=== PATIENT | female | born 1960 | race Caucasian/White ===

== ENCOUNTER 2023-12-23 09:34 | Outpatient (AMB) | payer OTHER, SELFPAY ==
--- NOTE | 2023-12-23 09:44 | A.OFFPC_ITS ---
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 Intake Note: NPV Allergies doxycycline Allergy (Intermediate, Verified 12/23/23 09:45) Chest Pain Medication List - Last Reconciled 12/23/23 by Eden Aviles MD clobetasol 0.05% topical DAILY ketoconazole 2% appl topical BID levothyroxine 50 mcg PO DAILY loratadine 10 mg PO DAILY loratadine-pseudoephedrine 10-240 mg ER (Allergy Relief D-24hr) 1 tab PO DAILY pravastatin 10 mg PO BEDTIME Tobacco use date assessed: 12/23/23 Last assessed Fall Risk: 12/23/23 Dental Screening Dental Screen Date: 12/23/23 Did you have a dental visit in the last 12 months?: Yes Did you have a dental problem in the last 6 months where you did not have access to dental care?: No Was dental information given to patient?: Patient has dentist HPI HPI Comments History of Present Illness Details 63 year old female with a past medical h istory of hypothyroid, hype rlipidemia, allergies presenting for follow up Endocrine: Hypothyroid. Has been clinically and biochemically stable on current levothyroxine dose MSK: Goes to [employer] [facility]. Sees Dr Smith. Gets regular PT. Mammo: 04/2023 [facility], [facility] Social History (Updated 12/23/23 @ 09:48 by Stefany Traore [facility]) Housing: House Patient Tobacco Use Status: Former Tobacco user Cigarette Packs Per Day: 0.5 Years Smoked: 20 years e-Cigarette/Vaping Use: Never Used Second Hand Smoke Exposure: No service: No Current occupational status: retired Cognitive needs: No Hearing needs: Yes (Hearing aids) Vision needs: Yes (glasses) Questionnaire PHQ-9 Over the last 2 weeks, how often have you been bothered by any of the following problems? 1. Little interest or pleasure in doing things: not at all 2. Feeling down, depressed, or hopeless: not at all 3. Trouble falling or staying asleep, or sleeping too much: not at all 4. Feeling tired or having little energy: not at all 5. Poor appetite or overeating: not at all 6. Feeling bad about yourself - or that you are a failure or have let yourself or your family down: not at all 7. Trouble concentrating on things, such as reading the newspaper or watching television: not at all 8. Moving or speaking so slowly that other people could have noticed. Or the opposite - being so fidgety or restless that you have been moving around a lot more than usual: not at all 9. Thoughts that you would be better off or of hurting yourself in some way: not at all Total score: 0 Depression Screening Interpretation: Negative Depression Screening Done: Yes 67673 - PHQ-9 Billing: Yes Source: Developed by Drs. Hayden Phoenix, Jinny Mccollum, Audie Alegria and colleagues, with an educational moshe from [employer]. Thrive Questionnaire Date Thrive assessed: 12/23/23 I am a: Patient What is your living situation today?: I have a steady place to live Within the past 12 months, did the food you bought not last and you didn't have the money to get more?: Never true Within the past 12 months, did you worry whether your food would run out before you got money to buy more?: Never true Do you have trouble paying for medicines?: No Do you have trouble getting transportation to medical appointments?: No Do you have trouble paying your heating and electricity bill?: No Do you have trouble taking care of your child, family member or friend?: No Do you have trouble with day-to-day activities such as bathing, preparing meals, shopping, managing finances, etc.?: No Are you currently unemployed and looking for a job?: No Are you interested in more education?: No Please select the resources that you would like help with: None Currently or been in a relationship where the following occur: I choose not to answer this question THRIVE Score: 0 AUDIT C Alcohol Use Questionnaire (AUDIT-C) 1. How often do you have a drink containing alcohol?: 2-3 times a week 2. How many drinks containing alcohol do you have on a typical day when you are drinking?: 1 or 2 3. How often do you have six or more drinks on one occasion?: Never Total Score: 3 Score Reviewed/Action Taken: Yes AMARI-7 AMB Questionnaire AMARI-7 Date AMARI - 7 assessed: 12/23/23 Feeling nervous, anxious, or on edge: 0 = Not at all Not being able to stop or control worryin = Not at all Worrying too much about different things: 0 = Not at all Trouble relaxin = Not at all Being so restless that it is hard to sit still: 0 = Not at all Becoming easily annoyed or irritable: 0 = Not at all Feeling afraid as if something awful might happen: 0 = Not at all Total AMARI-7 score (0-4 normal; 5-9 mild; 10-14 moderate; 15-21 severe): 0 Source: Developed by Drs. Hayden Phoenix, Jinny Mccollum, Audie Alegria and colleagues, with an educational moshe from [employer]. AMARI-7 Assessment Billing AMARI-7 Assessment Tool: AMARI-7 Assessment 35962 Review of Systems Const Details: ROS CONSTITUTIONAL: Denies weight loss, fever and chills. HEENT: Denies changes in vision and hearing. RESPIRATORY: Denies SOB and cough. CV: Denies palpitations and CP GI: Denies abdominal pain, nausea, vomiting and diarrhea. : Denies dysuria and urinary frequency. MSK: Denies new myalgia and joint pain. SKIN: Denies rash and pruritus. NEUROLOGICAL: Denies headache PSYCHIATRIC: Denies recent changes in mood. Physical exam (Primary Care) Vital Signs: Last Vital Signs Temp 98.5 F 12/23/23 09:51 Pulse 85 12/23/23 09:51 Resp 14 12/23/23 09:51 BP 108/58 L 12/23/23 09:51 Pulse Ox 98 12/23/23 09:51 Oxygen Delivery Method Room Air 12/23/23 09:51 PHYSICAL EXAM: GENERAL: Alert and oriented x 3. NAD EYES: EOMI. Anicteric. HENT: Moist mucous membranes. No scleral icterus. No cervical lymphadenopathy. LUNGS: Clear to auscultation bilaterally. CARDIOVASCULAR: Regular rate and rhythm. No murmur. No JVD. ABDOMEN: Soft, non-tender +bs EXTREMITIES: No edema. Non-tender. SKIN: No rashes or lesions. Warm. NEUROLOGIC: No focal neurological deficits. CN II-XII grossly intact PSYCHIATRIC: Cooperative. Appropriate mood and affect BMI result Body Mass Index 20.7 Tobacco/Smoking Status: Tobacco use Status Tobacco use date assessed 12/23/23 12/23/23 09:54 Patient Tobacco Use Status Former Tobacco user 12/23/23 09:54 e-Cigarette/Vaping Use Never Used 12/23/23 09:54 PHQ-9: PHQ-9 Score PHQ-9: Total score 0 12/23/23 09:57 Depression Screening Interpretation: Negative Thrive Assessment: Date of Thrive Assessment Date Thrive assessed 12/23/23 12/23/23 09:57 Currently or been in a relationship where the following occur: I choose not to answer this question Assessment and Plan Assessment & Plan (1) Hypothyroid: Comment: clinically and biochemically euthyroid Code(s): E03.9 - Hypothyroidism, unspecified Qualifiers: Hypothyroidism type: unspecified Qualified Code(s): E03.9 - Hypothyroidism, unspecified (2) Hyperlipidemia: Comment: labs today. diet low is saturated fats Code(s): E78.5 - Hyperlipidemia, unspecified Qualifiers: Hyperlipidemia type: unspecified Qualified Code(s): E78.5 - Hyperlipidemia, unspecified Orders: Orders Comprehensive Met. Panel Today E03.9 - Hypothyroidism, unspecified, E78.5 - Hyperlipidemia, unspecified TSH reflex Free T4 Today E03.9 - Hypothyroidism, unspecified, E78.5 - Hyperlipidemia, unspecified Lipid Panel Today E03.9 - Hypothyroidism, unspecified, E78.5 - Hyperlipidemia, unspecified Complete Blood Count Auto Diff Today E03.9 - Hypothyroidism, unspecified, E78.5 - Hyperlipidemia, unspecified Medications: New loratadine-pseudoephedrine 10-240 mg ER (Allergy Relief D-24hr) 1 tab PO DAILY 90 days 90 tabs 3RF Coding Level of Care Code Est Pt Level 4 (15130) Complex EM visit Add On G2211 Diagnoses Hypothyroidism, unspecified type E03.9 Hypothyroidism type: unspecified Hyperlipidemia, unspecified hyperlipidemia type E78.5 Hyperlipidemia type: unspecified Additional Codes AMARI-7 Assessment Billing - AMARI-7 Assessment Tool: AMARI-7 Assessment 07318 ([id number])
[2023-12-23 09:51] VITALS: BP 108/58; PULSE 85; RESP 14; TEMP 36.9; O2SAT 98; BMI 20.7
== END 2023-12-23 10:31 | disposition home or self-care (01) ==
PROVIDERS: PCP Internal Medicine; Visit Provider Internal Medicine
DX: E03.9 Hypothyroidism, unspecified (principal); E78.5 Hyperlipidemia, unspecified
CPT/HCPCS: 99214; G2211

== ENCOUNTER 2023-12-23 10:37 | Outpatient (REF) | payer OTHER, SELFPAY ==
[2023-12-23 14:29] LABS: MANUAL DIFF FLAG NO
[2023-12-23 14:32] LABS: Basophils Absolute Auto 0.1 X10*3/uL (0.0-0.2); Basophils Percent Auto 1.7 % (0-2); Eosinophils Absolute Auto 0.6 X10*3/uL (0.0-0.4); Eosinophils Percent Auto 10.6 % (0-4); Hematocrit 41.2 % (37.0-47.0); Hemoglobin 13.7 g/dl (12.0-16.0); Imm Gran Abs Auto 0.02 X10*3/uL (0.00-0.03); Imm Gran Pct Auto 0.3 % (0.0-0.4); Lymphocytes Percent Auto 16.6 % (20-40); Mean Corpuscular HGB Conc 33.3 g/dl (31.0-35.0); Mean Corpuscular Hemoglobin 31.8 pg (27.0-33.0); Mean Corpuscular Volume 95.6 fL (80.0-98.0); Mean Platelet Volume 12.9 fL (9.4-12.3); Monocytes Absolute Auto 0.7 X10*3/uL (0.1-1.2); Monocytes Percent Auto 12.2 % (2-11); Neutrophils Absolute Auto 3.4 x10*3/uL (2.0-8.3); Neutrophils Percent Auto 58.6 % (45-73); Platelet Count 166 X10*3/uL (160-400); Red Blood Count 4.31 X10*6/uL (4.20-5.50); Red Cell Distribution Width 12.6 % (11.0-16.0); White Blood Count 5.7 X10*3/uL (4.8-10.8)
[2023-12-23 15:17] LABS: Alanine Aminotransferase 17 U/L (0-31); Albumin Level 4.3 g/dL (3.5-5.0); Alkaline Phosphatase 73 U/L (39-117); Anion Gap 10 (12-20); Aspartate Amino Transferase 20 U/L (5-31); Bilirubin Total 0.3 mg/dL (0.0-1.0); Blood Urea Nitrogen 23 mg/dL (9-16); Calcium 9.7 mg/dL (8.4-10.2); Carbon Dioxide 30 mmol/L (22-29); Chloride 105 mmol/L (96-108); Cholesterol 231 mg/dL (<200); Estimated Glomerular Filt Rate > 60; Glucose Random 76 mg/dL (60-115); HDL Cholesterol 72 mg/dL (>40); LDL Cholesterol Calculated 142 mg/dL (<100); Potassium 3.6 mmol/L (3.3-5.1); Sodium 141 mmol/L (135-145); TSH reflex Free T4 1.52 uIU/mL (0.32-4.0); Total Protein 6.9 g/dL (6.5-8.0); Triglycerides 86 mg/dL (<150)
== END 2023-12-23 10:38 | disposition home or self-care (01) ==
LOC: HO.WFDLDS 10:37
PROVIDERS: Visit Provider Internal Medicine
DX: E78.5 Hyperlipidemia, unspecified (principal); E03.9 Hypothyroidism, unspecified
CPT/HCPCS: 36415; 80053; 80061; 84443; 85025

== ENCOUNTER 2024-06-08 10:14 | Outpatient (REF) | payer OTHER, SELFPAY ==
--- NOTE | ~2024-06-08 | MM_ITS ---
EXAMINATION: MM SCREENING DIGITAL BREAST TOMOSYNTHESIS, BILATERAL CLINICAL INFORMATION: Screening. Asymptomatic. COMPARISON: Mammography: Comparison is made with available priors TECHNIQUE: Digital breast mammography with tomosynthesis is performed in both the craniocaudal and mediolateral oblique views along with computer-aided detection (CAD). FINDINGS: The breasts are extremely dense, which lowers the sensitivity of mammography (ACR BI-RADS breast composition Category d). There are no significant masses, abnormal calcifications, or other abnormalities. MM/MM tomosynthesis screening BI IMPRESSION: No mammographic evidence of malignancy. ASSESSMENT: BI-RADS BI-RADS 1 - Negative RECOMMENDATION: Routine annual mammography screening. 1 year F/U This examination should not preclude the clinical evaluation of a suspicious palpable abnormality. This patient's information was entered into a reminder system with a target due date for their next mammogram. Electronically signed by: Marisa Yancey DO 06/17/2024 02:18 PM [facility]
== END 2024-06-08 10:15 | disposition home or self-care (01) ==
LOC: HO.MAMMO 10:14
PROVIDERS: PCP Internal Medicine; Visit Provider Internal Medicine
DX: Z12.31 Encounter for screening mammogram for malignant neoplasm of breast (principal)
CPT/HCPCS: 77063; 77067

== ENCOUNTER → 2024-06-08 10:30 | Outpatient (BNV) | payer OTHER, SELFPAY | PROVIDERS: PCP Internal Medicine; Visit Provider Internal Medicine | DX: Z12.31 Encounter for screening mammogram for malignant neoplasm of breast (principal) | CPT/HCPCS: 77063; 77067 ==

== ENCOUNTER 2024-06-10 09:11 | Outpatient (REF) | payer OTHER, SELFPAY ==
[2024-06-10 11:37] LABS: Baso%MD 1.5 %; Eos%MD 11.7 %; Hematocrit 42.7 % (37.0-47.0); Hemoglobin 14.2 g/dl (12.0-16.0); IG%MD 0.2 %; Mean Corpuscular HGB Conc 33.3 g/dl (31.0-35.0); Mean Corpuscular Hemoglobin 31.6 pg (27.0-33.0); Mean Corpuscular Volume 94.9 fL (80.0-98.0); Mean Platelet Volume 12.5 fL (9.4-12.3); Neut%MD 53.6 %; Platelet Count 169 X10*3/uL (160-400); Red Cell Distribution Width 12.7 % (11.0-16.0); White Blood Count 4.6 X10*3/uL (4.8-10.8)
[2024-06-10 11:46] LABS: Estimated Average Glucose 114 mg/dL; Hemoglobin A1C 131.7581 umol/L; Hemoglobin A1c % 5.6 % (<6.0); Total Hemoglobin (HGBA1C) 3529.0466 umol/L
[2024-06-10 12:01] LABS: Creatinine Urine 142.97 mg/dL; Microalbum/Creatinine Ratio Ur 40.5 ug/mg cr (<30)
[2024-06-10 12:06] LABS: Alanine Aminotransferase 24 U/L (0-31); Albumin Level 4.4 g/dL (3.5-5.0); Alkaline Phosphatase 82 U/L (39-117); Anion Gap 16 (12-20); Aspartate Amino Transferase 27 U/L (5-31); Bilirubin Total 0.4 mg/dL (0.0-1.0); Blood Urea Nitrogen 13 mg/dL (9-16); Calcium 9.6 mg/dL (8.4-10.2); Carbon Dioxide 27 mmol/L (22-29); Chloride 103 mmol/L (96-108); Cholesterol 227 mg/dL (<200); Estimated Glomerular Filt Rate > 60; Glucose Random 88 mg/dL (60-115); HDL Cholesterol 71 mg/dL (>40); LDL Cholesterol Calculated 142 mg/dL (<100); Potassium 3.9 mmol/L (3.3-5.1); Sodium 142 mmol/L (135-145); Total Protein 7.1 g/dL (6.5-8.0); Triglycerides 70 mg/dL (<150)
[2024-06-10 12:09] LABS: TSH reflex Free T4 1.44 uIU/mL (0.32-4.0); Thyroid Stimulating Hormone 1.44 uIU/mL (0.32-4.0)
[2024-06-10 13:38] LABS: Atypical Lymph Absolute Manual 0.3 x10*3/uL; Atypical Lymphs Percent Manual 6 % (0-6); Band Neutrophils Percent 2 % (3-5); Basophils Abs Manual 0.1 X10*3/uL (0.0-0.2); Basophils Percent Manual 2 % (0-2); Eosinophils Absolute Manual 0.3 X10*3/uL (0.0-0.4); Eosinophils Percent Manual 6 % (0-4); Lymphocytes Absolute Manual 0.6 X10*3/uL (1.2-4.9); Lymphocytes Percent Manual 14 % (20-40); Macrocytosis 1+ (5-14) /OIF; Monocytes Absolute Manual 0.6 X10*3/uL (0.1-1.2); Monocytes Percent Manual 12 % (2-11); Neutrophils Absolute Manual 2.8 X10*3/uL (2.0-8.3); Neutrophils Percent Manual 58 % (45-73); RBC Morphology NORMAL
[2024-06-10 13:39] LABS: Large Platelet PRESENT; Microcytosis 1+ (5-14) /OIF; Platelet Estimate DECREASED (NORMAL); Platelet Morphology Comment NOTED; Schistocytes 1+ (0-2) /OIF
[2024-06-10 13:40] LABS: Howell Jolly Bodies PRESENT
== END 2024-06-10 09:12 | disposition home or self-care (01) ==
LOC: HO.WFDLDS 09:11
PROVIDERS: Visit Provider Internal Medicine
DX: R79.89 Other specified abnormal findings of blood chemistry (principal); E03.9 Hypothyroidism, unspecified; E78.5 Hyperlipidemia, unspecified; R73.09 Other abnormal glucose
CPT/HCPCS: 36415; 80053; 80061; 82043; 82570; 83036; 84443; 85007; 85027

== ENCOUNTER 2024-07-07 08:49 | Outpatient (AMB) | payer OTHER, SELFPAY ==
--- NOTE | 2024-07-07 08:56 | MHC.PC.OV ---
Intake Visit Reasons: 6 month F/U Intake Note: Six month follow up. Reciprocating Drill Operator Required: No Allergies doxycycline Allergy (Intermediate, Verified 07/07/24 08:57) Chest Pain Tobacco use date assessed: 12/23/23 Dental Screening Dental Screen Date: 12/23/23 HPI HPI Comments History of Present Illness Details 64 year old female with a past medical history of hypothyroid, hyperlipidemia, allergies presenting for follow up Endocrine: Hypothyroid. Has been clinically and biochemically stable on current levothyroxine dose MSK: Goes to [employer] [facility]. Sees Dr Smith. Gets regular PT. CV: Tolerates 1/2 statin daily. If takes full dose then gets joint pain, myalgias. Mammo: UTD Colon cancer screening UTD ROS CONSTITUTIONAL: Denies weight loss, fever and chills. HEENT: Denies changes in vision and hearing. RESPIRATORY: Denies SOB and cough. CV: Denies palpitations and CP GI: Denies abdominal pain, nausea, vomiting and diarrhea. : Denies dysuria and urinary frequency. MSK: Denies new myalgia and joint pain. SKIN: Denies rash and pruritus. NEUROLOGICAL: Denies headache PSYCHIATRIC: Denies recent changes in mood. PHYSICAL EXAM: GENERAL: Alert and oriented x 3. NAD EYES: EOMI. Anicteric. HENT: Moist mucous membranes. No scleral icterus. No cervical lymphadenopathy. LUNGS: Clear to auscultation bilaterally. CARDIOVASCULAR: Regular rate and rhythm. No murmur. No JVD. ABDOMEN: Soft, non-tender +bs EXTREMITIES: No edema. Non-tender. SKIN: No rashes or lesions. Warm. NEUROLOGIC: No focal neurological deficits. CN II-XII grossly intact PSYCHIATRIC: Cooperative. Appropriate mood and affect [facility] Medical History (Updated 07/09/24 @ 15:14 by Eden Aviles MD) H/O mammogram Surgical History (Updated 07/07/24 @ 09:04 by Jessi Burns CMA) H/O colonoscopy H/O: hysterectomy Family History (Updated 07/07/24 @ 09:06 by Jessi Burns CMA) Mother Stomach cancer Social History (Updated 07/07/24 @ 09:01 by Jessi Burns CMA) Housing: House Alcohol intake: current Patient Tobacco Use Status: Former Tobacco user Cigarette Packs Per Day: 0.5 Years Smoked: 20 years e-Cigarette/Vaping Use: Never Used Second Hand Smoke Exposure: No service: No Current occupational status: retired Cognitive needs: No Hearing needs: Yes (Hearing aids) Vision needs: Yes (glasses) Questionnaire PHQ-9 Over the last 2 weeks, how often have you been bothered by any of the following problems? 1. Little interest or pleasure in doing things: not at all 2. Feeling down, depressed, or hopeless: not at all 3. Trouble falling or staying asleep, or sleeping too much: not at all 4. Feeling tired or having little energy: not at all 5. Poor appetite or overeating: not at all 6. Feeling bad about yourself - or that you are a failure or have let yourself or your family down: not at all 7. Trouble concentrating on things, such as reading the newspaper or watching television: not at all 8. Moving or speaking so slowly that other people could have noticed. Or the opposite - being so fidgety or restless that you have been moving around a lot more than usual: not at all 9. Thoughts that you would be better off or of hurting yourself in some way: not at all Total score: 0 Source: Developed by Drs. Hayden Phoenix, Jinny Mccollum, Audie Alegria and colleagues, with an educational moshe from [employer]. Thrive Questionnaire Date Thrive assessed: 06/23/24 I am a: Patient What is your living situation today?: I have a steady place to live Within the past 12 months, did the food you bought not last and you didn't have the money to get more?: Never true Within the past 12 months, did you worry whether your food would run out before you got money to buy more?: Never true Do you have trouble paying for medicines?: No Do you have trouble getting transportation to medical appointments?: No Do you have trouble paying your heating and electricity bill?: No Do you have trouble taking care of your child, family member or friend?: No Do you have trouble with day-to-day activities such as bathing, preparing meals, shopping, managing finances, etc.?: No Are you currently unemployed and looking for a job?: No Are you interested in more education?: No Please select the resources that you would like help with: None Currently or been in a relationship where the following occur: No concerns reported THRIVE Score: 0 AMARI-7 AMB Questionnaire AMARI-7 Date AMARI - 7 assessed: 12/23/23 Source: Developed by Drs. Hayden Phoenix, Jinny Mccollum, Audie Alegria and colleagues, with an educational moshe from [employer]. Physical exam (Primary Care) Tobacco/Smoking Status: Tobacco use Status Tobacco use date assessed 12/23/23 07/07/24 09:06 Patient Tobacco Use Status Former Tobacco user 07/07/24 09:06 e-Cigarette/Vaping Use Never Used 07/07/24 09:06 PHQ-9: PHQ-9 Score PHQ-9: Total score 0 07/07/24 09:38 Thrive Assessment: Date of Thrive Assessment Date Thrive assessed 06/23/24 07/07/24 09:06 Currently or been in a relationship where the following occur: No concerns reported Coding Level of Care Code Est Pt Level 4 (56202) Diagnoses Hypothyroidism, unspecified type E03.9 Hypothyroidism type: unspecified Hyperlipidemia, unspecified hyperlipidemia type E78.5 Hyperlipidemia type: unspecified Abnormal CBC R79.89 Assessment & Plan Assessment & Plan (1) Hypothyroid: Comment: clinically and biochemically euthyroid Code(s): E03.9 - Hypothyroidism, unspecified Category: Medical Qualifiers: Hypothyroidism type: unspecified Qualified Code(s): E03.9 - Hypothyroidism, unspecified Plan: continue current levothyroxine dose (2) Hyperlipidemia: Code(s): E78.5 - Hyperlipidemia, unspecified Category: Medical Qualifiers: Hyperlipidemia type: unspecified Qualified Code(s): E78.5 - Hyperlipidemia, unspecified Plan: continue statin dose 1/2 dose (3) Abnormal CBC: Code(s): R79.89 - Other specified abnormal findings of blood chemistry Category: Medical Plan: Reassuring smear.
== END 2024-07-07 09:52 | disposition home or self-care (01) ==
PROVIDERS: PCP Internal Medicine; Visit Provider Internal Medicine
DX: E03.9 Hypothyroidism, unspecified (principal); E78.5 Hyperlipidemia, unspecified; R79.89 Other specified abnormal findings of blood chemistry

== ENCOUNTER → 2024-07-07 08:49 | Outpatient (BNVA) | payer OTHER, SELFPAY | PROVIDERS: PCP Internal Medicine; Visit Provider Internal Medicine ==

== ENCOUNTER 2024-09-23 09:46 | Outpatient (AMB) | payer OTHER, SELFPAY ==
--- NOTE | 2024-09-23 10:45 | MHC.OFFWIV ---
Intake Vital Signs 09/23/24 10:46 Weight 108 lb BP 108/70 Blood Pressure Location Rt brachial Position Sitting Pulse 61 Pulse Source Pulse Oximeter Pulse Oximetry (%) 98 Oxygen Delivery Method Room Air Intake Visit Reasons: EP injured LT shoulder Intake Note: Patient here for left shoulder pain that started saturday. Patient Tobacco Use Status: Former Tobacco user Allergies doxycycline Allergy (Intermediate, Verified 09/23/24 10:47) Chest Pain HPI HPI Comments History of Present Illness Details History of Present Illness - The patient is a 64-year-old female presenting with left shoulder pain. - The pain initiated five days prior related to lifting activities and is most severe on the lateral aspect of the shoulder, exacerbated by certain lifting and twisting movements. - Current management is with Aleve and rest which has provided some relief; the patient avoids overhead and nzlmkz-xlz-[id number] movements due to increased pain. - Established cervical spine arthritis is managed with monthly physical therapy. Physical Exam General: Cooperative, healthy appearing, comfortable, no acute distress and well developed Orientation: Patient oriented x3 Limitations: Limited range of motion in the left shoulder, pain with certain movements Head: Normal to inspection Ears: Hearing grossly normal bilaterally Nose: Normal external nose present Face and sinus: Normal facial exam Eyes: Appearance normal, both eyes and all related structures Neck: Normal visual inspection and Yes full ROM Respiratory: Normal respiratory effort and able to speak in complete sentences. Skin: No rashes or lesions noted Neuro: Patient oriented x3 Extremities: see below [facility] Medical History (Updated 09/23/24 @ 11:19 by Nicole Jameson PA-C) H/O mammogram Surgical History (Updated 07/07/24 @ 09:04 by Jessi Burns CMA) H/O colonoscopy H/O: hysterectomy Family History (Updated 07/07/24 @ 09:06 by Jessi Burns CMA) Mother Stomach cancer Social History (Updated 07/07/24 @ 09:01 by Jessi Burns CMA) Housing: House Alcohol intake: current Patient Tobacco Use Status: Former Tobacco user Cigarette Packs Per Day: 0.5 Years Smoked: 20 years e-Cigarette/Vaping Use: Never Used Second Hand Smoke Exposure: No service: No Current occupational status: retired Cognitive needs: No Hearing needs: Yes (Hearing aids) Vision needs: Yes (glasses) Review of Systems Const All systems reviewed & are unremarkable except as noted in HPI and below Physical Exam Vital Signs: Last Vital Signs Pulse 61 09/23/24 10:46 BP 108/70 09/23/24 10:46 Pulse Ox 98 09/23/24 10:46 Oxygen Delivery Method Room Air 09/23/24 10:46 Back/Spine/Pelvis Cervical Spine: normal cervical lordosis, cervical ROM normal, cervical muscular tenderness, No cervical spasm and No Cervical spine tenderness Extrem General: Yes normal to inspection Left upper extremity: shoulder/upper arm Details: tenderness (lateral and anterior), axillary nerve sensory function normal and abnormal ROM Details: pain with active ROM (+ empty can) Details: in ABduction and in internal rotation (and with lift off); no swelling, no lacerations, no ecchymosis, no deformity and no unsual warmth Assessment & Plan Assessment & Plan (1) Left shoulder pain: Code(s): M25.512 - Pain in left shoulder Qualifiers: Chronicity: acute Qualified Code(s): M25.512 - Pain in left shoulder Plan: The patient?s suspected left shoulder tendonitis or rotator cuff issue will be approached with an initial conservative treatment plan, involving rest, ice, and Aleve, ensuring kidney safety with limited prolonged use. A sling will assist in proper rest with guidance to avoid continuous prolonged use. A referral to orthopedics has been made for further evaluation, which can be canceled if symptoms resolve. Additionally, incorporating advice from physical therapy sessions is recommended. Pain management will continue with topical NSAIDs if needed. Activity levels should be adapted to her upcoming participation in a golf tournament, couching the patient in usage adjustments to avoid aggravation. The patient is encouraged to keep vigilant for any ongoing discomfort that may necessitate orthopedic intervention. Patient was informed and verbally consented to the use of an ambient scribe for clinic note documentation during this visit. Orders: Referrals Orthopedics Referral M25.512 - Pain in left shoulder Coding Level of Care Code Est Pt Level 3 (02176) Diagnoses Acute pain of left shoulder M25.512 Chronicity: acute
[2024-09-23 10:46] VITALS: BP 108/70; PULSE 61; O2SAT 98
== END 2024-09-23 11:21 | disposition home or self-care (01) ==
PROVIDERS: PCP Internal Medicine; Visit Provider Physician Assistant
DX: M25.512 Pain in left shoulder (principal)

== ENCOUNTER 2024-10-12 09:39 | Outpatient (REF) | payer OTHER, SELFPAY ==
--- NOTE | ~2024-10-12 | XR_ITS ---
EXAMINATION: XR SHOULDER 2 OR MORE VIEWS LEFT HISTORY: M25.512 - Pain in left shoulder COMPARISON: There are no prior studies available for comparison. FINDINGS: Two views of the left shoulder are submitted. Osseous mineralization is normal. There is no fracture or dislocation. The glenohumeral joint is maintained. There is mild narrowing of the AC joint. The soft tissues are unremarkable. XR/XR shoulder LT min 2V IMPRESSION: Mild narrowing of the AC joint. Electronically signed by: Hayden Guzman MD 10/13/2024 11:28 AM EDT
== END 2024-10-12 09:40 | disposition home or self-care (01) ==
LOC: HO.HOSX 09:39
PROVIDERS: Visit Provider Orthopaedic Surgery
DX: M25.512 Pain in left shoulder (principal)
CPT/HCPCS: 73030

== ENCOUNTER 2024-10-12 14:17 | Outpatient (AMB) | payer OTHER, SELFPAY ==
[2024-10-12 14:25] VITALS: BMI 20.6
--- NOTE | 2024-10-12 14:25 | A.OFFVIS_ITS ---
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 The patient states that she aggravated her left shoulder while lifting a fan. Her discomfort has gotten better over the last few weeks. She denies any weakness. She does not take any medicines for her discomfort. She has been doing gentle ogjrf-wn-foqugd exercises on her own to prevent stiffness. Allergies doxycycline Allergy (Intermediate, Verified 10/12/24 14:35) Chest Pain Medication List - Last Reconciled 10/12/24 by Heladio Harkins MD clobetasol 0.05% topical DAILY ketoconazole 2% appl topical BID levothyroxine 50 mcg PO DAILY loratadine 10 mg PO DAILY pravastatin 10 mg PO BEDTIME PFSH Medical History (Updated 09/23/24 @ 11:19 by Nicole Jameson PA-C) H/O mammogram Surgical History (Updated 07/07/24 @ 09:04 by Jessi Burns CMA) H/O colonoscopy H/O: hysterectomy Family History (Updated 07/07/24 @ 09:06 by Jessi Burns CMA) Mother Stomach cancer Social History Housing: House Alcohol intake: current Patient Tobacco Use Status: Former Tobacco user Cigarette Packs Per Day: 0.5 Years Smoked: 20 years e-Cigarette/Vaping Use: Never Used Second Hand Smoke Exposure: No service: No Current occupational status: retired Cognitive needs: No Hearing needs: Yes (Hearing aids) Vision needs: Yes (glasses) Physical Exam Vital Signs: BMI result Body Mass Index 20.6 Const Other: Well-nourished well-developed very friendly female awake alert and oriented x3 in no acute distress Extrem Other: Left shoulder examination shows almost full range of motion when compared to her right shoulder, 4+ out of 5 strength with supraspinatus testing, positive impingement signs, no instability Results Reviewed Results Reviewed: X-rays of the patient's left shoulder show moderate to severe acromioclavicular joint narrowing, a type 2 acromion, no acute bony abnormalities Assessment & Plan Assessment & Plan (1) Left shoulder pain: Code(s): M25.512 - Pain in left shoulder Category: Medical Qualifiers: Chronicity: acute Qualified Code(s): M25.512 - Pain in left shoulder Plan Ms. Aguila presents with intermittent left shoulder discomfort due to impingement syndrome. I had a lengthy discussion with the patient regarding the treatment options. At this point the patient's symptoms are tolerable to her. She will continue with her home stretching program. She will follow up with me on an as-needed basis should her symptoms worsen in any way. Feel free to call me at any time should questions regarding her orthopedic management arise. I spent 21 minutes in reviewing the patient's records and imaging studies, seeing the patient and documenting in the medical record. Orders: Orders XR shoulder LT min 2V 10/12/24 M25.512 - Pain in left shoulder Coding Level of Care Code New Pt Level 3 (24882) Complex EM visit Add On G2211 Diagnoses Acute pain of left shoulder M25.512 Chronicity: acute
== END 2024-10-12 14:52 | disposition home or self-care (01) ==
LOC: HO.HOS 14:18
PROVIDERS: PCP Internal Medicine; Visit Provider Orthopaedic Surgery
DX: M25.512 Pain in left shoulder (principal); M75.42 Impingement syndrome of left shoulder
CPT/HCPCS: 99203

== ENCOUNTER → 2024-10-12 14:20 | Outpatient (BNV) | payer OTHER, SELFPAY | PROVIDERS: Visit Provider Radiology Diagnostic Radiology | DX: M25.512 Pain in left shoulder (principal) | CPT/HCPCS: 73030 ==

== ENCOUNTER 2025-01-11 08:43 | Outpatient (AMB) | payer OTHER, SELFPAY ==
--- NOTE | 2025-01-11 08:47 | MHC.PC.OV ---
Vital Signs 01/11/25 08:51 Height 5 ft 1 in Weight 106 lb BMI 20.0 BP 90/56 L Blood Pressure Location Lt brachial Position Sitting Respiration 12 Pulse 69 Pulse Source Pulse Oximeter Temp 98.5 F Temp Source Oral Pulse Oximetry (%) 97 Oxygen Delivery Method Room Air Intake Visit Reasons: 6 month f/u Intake Note: Six month follow up Allergies doxycycline Allergy (Intermediate, Verified 01/11/25 08:49) Chest Pain Tobacco use date assessed: 01/11/25 Fall risk assessment: No Falls in past year Last assessed Fall Risk: 01/11/25 Dental Screening Dental Screen Date: 01/11/25 Did you have a dental visit in the last 12 months?: Yes Did you have a dental problem in the last 6 months where you did not have access to dental care?: No Was dental information given to patient?: Patient has dentist HPI HPI Comments History of Present Illness Details 64 year old female with a past medical history of hypothyroid, hyperlipidemia, allergies presenting for follow up Endocrine: Hypothyroid. Has been clinically and biochemically stable on current levothyroxine dose MSK: Goes to [employer] [facility]. Sees Dr Smith. Gets regular PT. Seen for shoulder pain at walk in -went to ortho. Feeling improved CV: Tolerates 1/2 statin daily. If takes full dose then gets joint pain, myalgias. Mammo: 05/2024 Colon cancer screening UTD ROS CONSTITUTIONAL: Denies weight loss, fever and chills. HEENT: Denies changes in vision and hearing. RESPIRATORY: Denies SOB and cough. CV: Denies palpitations and CP GI: Denies abdominal pain, nausea, vomiting and diarrhea. : Denies dysuria and urinary frequency. MSK: Denies new myalgia and joint pain. SKIN: Denies rash and pruritus. NEUROLOGICAL: Denies headache PSYCHIATRIC: Denies recent changes in mood. PHYSICAL EXAM: GENERAL: Alert and oriented x 3. NAD EYES: EOMI. Anicteric. HENT: Moist mucous membranes. No scleral icterus. No cervical lymphadenopathy. LUNGS: Clear to auscultation bilaterally. CARDIOVASCULAR: Regular rate and rhythm. No murmur. No JVD. ABDOMEN: Soft, non-tender +bs EXTREMITIES: No edema. Non-tender. SKIN: No rashes or lesions. Warm. NEUROLOGIC: No focal neurological deficits. CN II-XII grossly intact PSYCHIATRIC: Cooperative. Appropriate mood and affect [facility] Medical History H/O mammogram Surgical History H/O colonoscopy H/O: hysterectomy Family History Mother Stomach cancer Social History Housing: House Alcohol intake: current Patient Tobacco Use Status: Former Tobacco user Cigarette Packs Per Day: 0.5 Years Smoked: 20 years e-Cigarette/Vaping Use: Never Used Second Hand Smoke Exposure: No service: No Current occupational status: retired Cognitive needs: No Hearing needs: Yes (Hearing aids) Vision needs: Yes (glasses) Questionnaire PHQ-9 Over the last 2 weeks, how often have you been bothered by any of the following problems? 1. Little interest or pleasure in doing things: not at all 2. Feeling down, depressed, or hopeless: not at all 3. Trouble falling or staying asleep, or sleeping too much: not at all 4. Feeling tired or having little energy: not at all 5. Poor appetite or overeating: not at all 6. Feeling bad about yourself - or that you are a failure or have let yourself or your family down: not at all 7. Trouble concentrating on things, such as reading the newspaper or watching television: not at all 8. Moving or speaking so slowly that other people could have noticed. Or the opposite - being so fidgety or restless that you have been moving around a lot more than usual: not at all 9. Thoughts that you would be better off or of hurting yourself in some way: not at all Total score: 0 Depression Screening Interpretation: Negative Depression Screening Done: Yes 63011 - PHQ-9 Billing: Yes Source: Developed by Drs. Hayden Phoenix, Jinny Mccollum, Audie Alegria and colleagues, with an educational moshe from [employer]. Thrive Questionnaire Date Thrive assessed: 01/10/25 I am a: Patient What is your living situation today?: I have a steady place to live Within the past 12 months, did the food you bought not last and you didn't have the money to get more?: Never true Within the past 12 months, did you worry whether your food would run out before you got money to buy more?: Never true Do you have trouble paying for medicines?: No Do you have trouble getting transportation to medical appointments?: No Do you have trouble paying your heating and electricity bill?: No Do you have trouble taking care of your child, family member or friend?: No Do you have trouble with day-to-day activities such as bathing, preparing meals, shopping, managing finances, etc.?: No Are you currently unemployed and looking for a job?: No Are you interested in more education?: No Please select the resources that you would like help with: None Currently or been in a relationship where the following occur: No concerns reported THRIVE Score: 0 AUDIT C Alcohol Use Questionnaire (AUDIT-C) 1. How often do you have a drink containing alcohol?: 2-4 times a month 2. How many drinks containing alcohol do you have on a typical day when you are drinking?: 1 or 2 3. How often do you have six or more drinks on one occasion?: Never Total Score: 2 AMARI-7 AMB Questionnaire AMARI-7 Date AMARI - 7 assessed: 12/23/23 Feeling nervous, anxious, or on edge: 0 = Not at all Not being able to stop or control worryin = Not at all Worrying too much about different things: 0 = Not at all Trouble relaxin = Not at all Being so restless that it is hard to sit still: 0 = Not at all Becoming easily annoyed or irritable: 0 = Not at all Feeling afraid as if something awful might happen: 0 = Not at all Total AMARI-7 score (0-4 normal; 5-9 mild; 10-14 moderate; 15-21 severe): 0 Source: Developed by Drs. Hayden Phoenix, Jinny Mccollum, Audie Alegria and colleagues, with an educational moshe from [employer]. Physical exam (Primary Care) Vital Signs: Last Vital Signs Temp 98.5 F 01/11/25 08:51 Pulse 69 01/11/25 08:51 Resp 12 01/11/25 08:51 BP 90/56 L 01/11/25 08:51 Pulse Ox 97 01/11/25 08:51 Oxygen Delivery Method Room Air 01/11/25 08:51 BMI result Body Mass Index 20.0 Tobacco/Smoking Status: Tobacco use Status Tobacco use date assessed 01/11/25 01/11/25 08:54 Patient Tobacco Use Status Former Tobacco user 01/11/25 08:48 e-Cigarette/Vaping Use Never Used 01/11/25 08:48 PHQ-9: PHQ-9 Score PHQ-9: Total score 0 01/11/25 08:54 Depression Screening Interpretation: Negative Thrive Assessment: Date of Thrive Assessment Date Thrive assessed 01/10/25 01/11/25 08:48 Currently or been in a relationship where the following occur: No concerns reported Coding Level of Care Code Est Pt Level 4 (62908) Complex EM visit Add On G2211 Diagnoses Hyperlipidemia, unspecified hyperlipidemia type E78.5 Hyperlipidemia type: unspecified Hypothyroidism, unspecified type E03.9 Hypothyroidism type: unspecified Additional Codes PHQ-9 - 44419 - PHQ-9 Billing: Yes ([id number]) Assessment & Plan Assessment & Plan (1) Hyperlipidemia: Code(s): E78.5 - Hyperlipidemia, unspecified Category: Medical Qualifiers: Hyperlipidemia type: unspecified Qualified Code(s): E78.5 - Hyperlipidemia, unspecified (2) Hypothyroid: Comment: clinically and biochemically euthyroid Code(s): E03.9 - Hypothyroidism, unspecified Category: Medical Qualifiers: Hypothyroidism type: unspecified Qualified Code(s): E03.9 - Hypothyroidism, unspecified Plan Hypothyroid-clinically and biochemically euthyroid HLD-stable on statin therapy. Allergies are stable Mammo for Nov. Check on colonoscopy date Orders: Orders Hemoglobin A1c Today E78.5 - Hyperlipidemia, unspecified, R73.09 - Other abnormal glucose Comprehensive Met. Panel Today E78.5 - Hyperlipidemia, unspecified, R73.09 - Other abnormal glucose Lipid Panel Today E78.5 - Hyperlipidemia, unspecified, R73.09 - Other abnormal glucose TSH reflex Free T4 Today R79.89 - Other specified abnormal findings of blood chemistry MM screening mammo BI 4 Months Z12.31 - Encounter for screening mammogram for malignant neoplasm of breast Medications: Refilled levothyroxine 50 mcg PO DAILY 90 tabs 3RF
[2025-01-11 08:51] VITALS: BP 90/56; PULSE 69; RESP 12; TEMP 36.9; O2SAT 97
== END 2025-01-11 09:17 | disposition home or self-care (01) ==
LOC: HO.HMCFM 08:43
PROVIDERS: Visit Provider Internal Medicine
DX: E78.5 Hyperlipidemia, unspecified (principal); E03.9 Hypothyroidism, unspecified

== ENCOUNTER → 2025-01-11 08:43 | Outpatient (BNVA) | payer OTHER, SELFPAY | PROVIDERS: Visit Provider Internal Medicine | DX: E78.5 Hyperlipidemia, unspecified (principal); E03.9 Hypothyroidism, unspecified; Z79.899 Other long term (current) drug therapy; Z13.31 Encounter for screening for depression | CPT/HCPCS: 96127 ==

== ENCOUNTER 2025-06-18 08:33 | Outpatient (REF) | payer OTHER, SELFPAY ==
[2025-06-18 13:00] LABS: Bacterial Vaginosis PCR NEGATIVE (Negative); Candida Group PCR NOT DETECTED (Not Detect); Candida glab krusei PCR NOT DETECTED (Not Detect); Trichomonas vaginalis PCR NOT DETECTED (Not Detect)
== END 2025-06-18 08:34 | disposition home or self-care (01) ==
LOC: HO.LNP 08:33
PROVIDERS: PCP Internal Medicine; Visit Provider Nurse Practitioner Family
DX: N90.89 Other specified noninflammatory disorders of vulva and perineum (principal); N89.8 Other specified noninflammatory disorders of vagina
CPT/HCPCS: 81003; 81515

== ENCOUNTER 2025-06-18 08:33 | Outpatient (AMB) | payer OTHER, SELFPAY ==
[2025-06-18 08:35] VITALS: BP 112/64; PULSE 73; TEMP 36.3; O2SAT 97; BMI 20.8
--- NOTE | 2025-06-18 08:35 | AM.OFFWIN_ITS ---
Intake Vital Signs 06/18/25 08:35 Height 5 ft 1 in Weight 110 lb BMI 20.8 BP 112/64 Blood Pressure Location Rt brachial Position Sitting Pulse 73 Pulse Source Pulse Oximeter Temp 97.3 F Temp Source Oral Pulse Oximetry (%) 97 Oxygen Delivery Method Room Air Intake Visit Reasons: EP itchy going to the bathroom alot burning Intake Note: Patient presents c/o burning when urinating, redness/itching x1 week. Patient Tobacco Use Status: Former Tobacco user Allergies doxycycline Allergy (Intermediate, Verified 06/18/25 08:42) Chest Pain Do you need a note to return to daycare/school/sports/work: No HPI EP itchy going to the bathroom alot burning HPI Details 65 year old female patient presents to t [facility] clinic today with report of red and itchy vulvar area, worsening for the last 2 weeks. Has a history of Lichen sclerosus, and has some old antifungal cream she has been using without much relief. Has some burning with urination but no urgency, frequency, or odor to urine. No flank pain, fever, or chills. [facility] Medical History H/O mammogram Surgical History H/O colonoscopy H/O: hysterectomy Family History Mother Stomach cancer Social History Housing: House Alcohol intake: current Patient Tobacco Use Status: Former Tobacco user Cigarette Packs Per Day: 0.5 Years Smoked: 20 years e-Cigarette/Vaping Use: Never Used Second Hand Smoke Exposure: No service: No Current occupational status: retired Cognitive needs: No Hearing needs: Yes (Hearing aids) Vision needs: Yes (glasses) Review of Systems Const All systems reviewed & are unremarkable except as noted in HPI and below Reports no additional complaints Eyes Reports no additional complaints ENT Reports no additional complaints Card Reports no additional complaints Resp Reports no additional complaints GI Reports no additional complaints Reports no additional complaints Musc Reports no additional complaints Skin/Breast Reports system reviewed and no additional complaints, except as documented Neuro Reports no additional complaints Psych Reports no additional complaints Endo Reports no additional complaints Lew/Lymph Reports no additional complaints Aller/Immun Reports no additional complaints Physical Exam Exam Exam: Vital signs reviewed. Constitutional: Non-toxic appearing. No acute distress. Well-developed and well-nourished. HEENT: Normocephalic and atraumatic. PERRL/EOMI. Tympanic membranes without erythema, edema, or bulging bilaterally. External auditory canals without erythema or edema bilaterally. Moist mucous membranes. No pharyngeal erythema or exudates. Skin: Warm and dry. No rashes or lesions noted. Neck: Full and painless range of motion. No cervical lymphadenopathy. Cardio: Regular rate and rhythm. No murmurs, gallops, or rubs. No lower extremity edema. No JVD. Pulmonary: No respiratory distress. No accessory muscle usage. Clear to auscultation bilaterally without wheezing, crackles, or rhonchi. Gastrointestinal: Soft, non-tender, and non-distended in all 4 quadrants. Normoactive bowel sounds in all 4 quadrants. Genitourinary: No CVA tenderness. Musculoskeletal: Normal range of motion in joints throughout the body. No deformity or other signs of injury. Neuro: Alert and oriented x4. Cranial nerves 2-12 grossly intact. No focal deficits appreciated. Psych: Normal mood and affect. Vital Signs: Last Vital Signs Temp 97.3 F 06/18/25 08:35 Pulse 73 06/18/25 08:35 BP 112/64 06/18/25 08:35 Pulse Ox 97 06/18/25 08:35 Oxygen Delivery Method Room Air 06/18/25 08:35 BMI result Body Mass Index 20.8 Const General: cooperative, healthy appearing, comfortable and no acute distress Resp Effort & Inspection: normal respiratory effort General: Yes no CVA tenderness External Female Exam: erythema (vulvar) Back/Spine/Pelvis Back: no CVA tenderness Extrem General: Yes capillary refill normal and Yes no clubbing, cyanosis or edema Psych Appearance: grossly normal Mental Status: mental status grossly normal Speech and movement: Normal speech and movement present Results AMB Urinalysis, Automated UA Leukoctes 0 Layo/uL Last Edit by Birdie Cope CMA on 06/18/25 08:48 UA Nitrite Negative Last Edit by Birdie Cope CMA on 06/18/25 08:48 UA Urobilinogen 0.2 mg/dL Last Edit by Birdie Cope CMA on 06/18/25 08: 48 UA Protein 0 mg/dL Last Edit by Birdie Cope CMA on 06/18/25 08:48 UA pH 6.0 Last Edit by Birdie Cope CMA on 06/18/25 08:48 UA Blood 0 Lance/uL Last Edit by Birdie Cope, HOLLEY on 06/18/25 08:48 UA Specific [place] 1.015 Last Edit by Birdie Cope CMA on 06/18/25 08 :48 UA Ketone Negative Last Edit by Birdie Cope CMA on 06/18/25 08:48 UA Bilirubin 0 mg/dL Last Edit by Birdie Cope CMA on 06/18/25 08:48 UA Glucose 0 mg/dL Last Edit by Birdie Cope CMA on 06/18/25 08:48 Assessment & Plan Assessment & Plan (1) Vulvar irritation: Code(s): N90.89 - Other specified noninflammatory disorders of vulva and perineum Plan: UA negative. BV swab obtained. Will start her on a topical corticosteroid ointment. We reviewed use of this. She will follow up with us or PCP if she does not improve with treatment or if symptoms worsen. All questions were answered and patient agrees to plan. She is aware she will be notified of BV swab results once available. Orders: Orders Bacterial Vaginosis Panel Today N89.8 - Other specified noninflammatory disorders of vagina AMB Urinalysis Automated Today Z13.9 - Encounter for screening, unspecified Medications: New betamethasone dipropionate 0.05% Apply daily at bedtime. 1 appl topical DAILY 45 grams 0RF N90.89 - Other specified noninflammatory disorders of vulva and perineum Coding Level of Care Code Est Pt Level 4 (15218) Diagnoses Vulvar irritation N90.89
== END 2025-06-18 09:06 | disposition home or self-care (01) ==
PROVIDERS: PCP Internal Medicine; Visit Provider Nurse Practitioner Family
DX: Z13.9 Encounter for screening, unspecified (principal); N90.89 Other specified noninflammatory disorders of vulva and perineum

== ENCOUNTER 2025-06-21 09:58 | Outpatient (REF) | payer OTHER, SELFPAY ==
--- NOTE | ~2025-06-21 | MM_ITS ---
EXAMINATION: MM SCREENING DIGITAL BREAST TOMOSYNTHESIS, BILATERAL CLINICAL INFORMATION: Screening. Asymptomatic. COMPARISON: Mammography: Comparison is made with available priors TECHNIQUE: Digital breast mammography with tomosynthesis is performed in both the craniocaudal and mediolateral oblique views along with computer-aided detection (CAD). FINDINGS: The breasts are extremely dense, which lowers the sensitivity of mammography. There are no significant masses, abnormal calcifications, or other abnormalities. MM/MM tomosynthesis screening BI IMPRESSION: No mammographic evidence of malignancy. ASSESSMENT: BI-RADS Category 1: Negative RECOMMENDATION: Routine annual mammography screening. 1 year F/U This examination should not preclude the clinical evaluation of a suspicious palpable abnormality. This patient's information was entered into a reminder system with a target due date for their next mammogram. Electronically signed by: Marisa Yancey DO 06/21/2025 05:38 PM [facility]
== END 2025-06-21 09:59 | disposition home or self-care (01) ==
LOC: HO.MAMMO 09:58
PROVIDERS: PCP Internal Medicine; Visit Provider Internal Medicine
DX: Z12.31 Encounter for screening mammogram for malignant neoplasm of breast (principal)
CPT/HCPCS: 77063; 77067

== ENCOUNTER → 2025-06-21 10:15 | Outpatient (BNV) | payer OTHER, SELFPAY | PROVIDERS: PCP Internal Medicine; Visit Provider Internal Medicine | DX: Z12.31 Encounter for screening mammogram for malignant neoplasm of breast (principal) | CPT/HCPCS: 77063; 77067 ==